=== PATIENT | female | born 1975 | race Hispanic/Latino ===

== ENCOUNTER 2018-08-09 06:15 | Day surgery (SDC) | payer BC ==
[2018-07-18 16:12] VITALS: BMI 23.5
[2018-08-09] MEDS ORDERED: Lactated Ringer's 1,000 ML IV ONE ×4 (07:06→10:50)
[2018-08-09] MEDS ORDERED: Chlorhexidine Gluconate 2OZ GEL TP ONE (07:25)
[2018-08-09] MEDS ORDERED: Silver Nitrate Topical - Stick ONE (07:25)
[2018-08-09] MEDS ORDERED: Bupivacaine 0.5% Inj(30mL) ONE (07:25)
[2018-08-09] MEDS ORDERED: Propofol 10 mg/ml Inj (20 ML) ONE (07:37)
[2018-08-09] MEDS ORDERED: Rocuronium 10 mg/ml (5 ml) ONE ×2 (07:37→09:59)
[2018-08-09] MEDS ORDERED: Lidocaine 4% (Laryng-O-Jet) Kit MM ONE (07:38)
[2018-08-09] MEDS ORDERED: Succinylcholine 200 mg/10 ml Inj IV ONE (08:25)
[2018-08-09] MEDS ORDERED: ePHEDrine 50 mg/ml Inj ONE (08:27)
[2018-08-09] MEDS ORDERED: Midazolam 2 MG/2 ML VIAL ONE (08:27)
[2018-08-09] MEDS ORDERED: Dexamethasone 4 mg/1 ml ONE (09:40)
[2018-08-09] MEDS ORDERED: Neostigmine 1:1000 (1 mg/ml) Inj ONE (11:08)
[2018-08-09] MEDS ORDERED: HYDROmorphone 0.5 mg/0.5 ml ISec IVP PRN (11:39)
[2018-08-09] MEDS ORDERED: Oxycodone/Acetaminophen 5/325 mg Tab PO PRN (11:39)
[2018-08-09] MEDS ORDERED: DiphenhydrAMINE 50 mg/ml Inj IVP PRN (11:40)
[2018-08-09] MEDS ORDERED: HYDROmorphone 0.5 mg/0.5 ml ISec ONE (11:44)
[2018-08-09] MEDS ORDERED: Lactated Ringer's 1,000 ML IV SCH ×2 (11:45)
[2018-08-09] MEDS: HYDROmorphone 0.5 mg/0.5 ml ISec IVP PRN ×4 (11:45→12:45)
[2018-08-09 12:28] VITALS: RESP 18
[2018-08-09] MEDS ORDERED: HYDROmorphone 0.5 mg/0.5 ml ISec IVP ONE ×2 (14:19→14:30)
[2018-08-09 15:54] VITALS: PULSE 61
[2018-08-09 18:11] VITALS: BP 104/54; TEMP 98; O2SAT 97
--- NOTE | 2018-08-10 07:22 | OP ---
PROCEDURE DATE: 08/09/2018 SURGEON: Yang Patrick MD LEGAL RECORDS CLERK: Abhi Hector MD ANESTHESIOLOGIST: Katya King MD TYPE OF ANESTHESIA: General endotracheal. PREOPERATIVE DIAGNOSES: 1. Incapacitating pelvic pain. 2. Incapacitating abdominal pain. 3. Abnormal uterine bleeding. 4. History of pelvic endometriosis. 5. History of previously failed medical and surgical therapy. 6. Gastrointestinal and genitourinary symptoms. 7. Rule out interstitial cystitis. 8. History of severe endometriosis and pelvic adhesions and prior hysterectomy POSTOPERATIVE DIAGNOSES: 1. Incapacitating pelvic pain. 2. Incapacitating abdominal pain. 3. Abnormal uterine bleeding. 4. History of pelvic endometriosis. 5. History of previously failed medical and surgical therapy. 6. History of severe endometriosis and pelvic adhesions. 7. Gastrointestinal and genitourinary symptoms. 8. pelvic endometriosis 9. Mild ureteral distention. PROCEDURES PERFORMED: 1. Exam under anesthesia. 2. .Cystoscopy 3. .Bilateral ureteral catheterization and 4. injection of IC-Green dye. 5. Robotic da Kanu operative laparoscopy. 6. Treatment of endometriosis. 7. Excision of endometriosis. 8. Bilateral ureterolysis. 9. left oophorectomy COMPLICATIONS: None. SAMPLES SENT: 1. Left Uterosacral l endometriosis. 2. Left periureteral endometriosis. 3. Right periureteral endometriosis. 4. Right uterosacral endometriosis. 5. Left and right ovarian fossa endometriosis. 6. Iliac endometriosis. 7. Posterior cervical endometriosis. 8. Rectal endometriosis, anterior. 9) Cul de sac endometriosis 10: left ovary 11: bladder endometriosis INDICATION FOR THE PROCEDURE AND CONSENT: The patient had a long history of pelvic pain, dysmenorrhea, dyspareunia, abdominal pain, and bladder pain.she had a hysterectomy but the pain has persisted . The patient had been thoroughly evaluated and counseled regarding the pros and cons of the procedure, the reasonable alternatives, and possible complications. She understood and accepted the risks involved. Literature was provided to the patient. The patient was understanding and given her history and per surgical exam, she was at high risk in an average patient. She accepted all the risks involved, and all the questions had been answered to her satisfaction. FINDINGS OF SURGERY: Genitalia: Normal external genitalia, . Cystoscopy: The cystoscopy was performed to rule out endometriosis and also any interstitial cystitis and also injury. The bladder was normal with no evidence of stone, trigonitis, or cystitis. A positive jet flow was identified in both ureters. Laparoscopy: The upper abdomen appeared to be normal. Gallbladder was normal. Liver edges appeared to be normal. Ascending colon and transverse were normal. the patient was post hysterectomy. the left ovary was encased in adhesions and had significant endometriosis. There was evidence of adhesions, fibrosis, and endometriosis of the rectovaginal and pelvic sidewalls. There was also evidence of mild hydroureters. DESCRIPTION OF THE PROCEDURE: Initiation of the case: After adequate anesthesia was obtained, the patient was placed in the dorsal lithotomy position, and with extreme care, placement of the patient with hyperextension and hyperflexing of the hips. At this point, the patient was prepped and draped. The surgeon was gowned and gloved. A timeout was taken according to the hospital procedure and the procedure was started. At this point, we performed cystoscopy, bilateral ureteral catheterization. A cystoscope was inserted into the bladder under direct visualization and the bladder was visualized. The bladder was free of lesions and tumors. There was no evidence of interstitial cystitis, and there was only mild amount of trigonitis. At this point, both ureters were identified and appeared to be in their normal anatomical position. At this point, utilizing an open 5-Czech open-ended catheter, the left ureter was catheterized all the way to the distal ureter, and 5 mL of IC-Green was injected into this ureter. Similarly, the contralateral ureter was catheterized all the way to the distal ureter, and 5 mL of IC-Green was injected into the distal ureter. At this point, the stents were removed, and the cystoscope was removed, and the 16-Czech Nazario was inserted into the bladder. At this point, we proceeded with placement of a trocar and docking of the da Kanu Xi robot. The surgeon was re-gowned and gloved, and open laparoscopy was performed by making incision in the umbilicus and the fascia was incised. The peritoneum was entered in a blunt fashion, and the cannula was inserted under direct visualization. The abdomen was insufflated, and under direct visualization, three additional ports were inserted in the left upper quadrant, left mid quadrant, and right upper quadrant. At this point, the da Kanu Xi robot was brought into the field and docked, and the instruments were inserted under direct visualization. All this with extreme care not to injure the bowel or another area. As per dictation, the upper abdomen appeared to be normal with no evidence of any lesions. At this point, we proceeded with a left ureterolysis. The ureter appeared to be dilated and was clearly identified utilizing IC-Green fluorescent technology. Anesthesia was made in the peritoneum at the top of the pelvic brim, and the incision was then carried down all the way opening the peritoneum all the way down from the pelvic brim, all the way down to the ovarian fossa, extending the incision below the ovary. It was a progressive dissection where the ureter was progressively lateralized and peritoneum was medialized, thus freeing the ureter all the way down to the cross of the uterine vessels. After this was done, the ureter was freed and lateralized, and a larger peritoneum which had been opened, was excised, and sent to pathology. At this point, with the aid of very slow process, I was able to elevate the ovary and proceed with ovariolysis. At this point, we proceeded with a left ovariolysis. The left ovary was adherent to the posterior aspect of the uterus. It was gently dissected in a step by step way. It was peeled off, the ovarian fossa, andan area of extensive fibrosis and endometriosis was exposed. At this point we performed a left oophorectomy the infuldibulo pelvic ligament was skeletonized and coagulated . it was transected and the ovary was placed in an endobag and removed. At this point, we proceeded with a right ureterolysis. The ureter was identified again utilizing fluorescent technology on the right hand side and retroperitoneal space was entered, and a full dissection was performed,entering the retroperitoneal space and dissecting the ureter, removing the ureter laterally and the peritoneum medially. A full dissection was performed all the way down to the ovarian fossa and the crossing of the uterine arteries. An area of peritoneum containing endometriosis was dissected and sent to Pathology. At this point, we proceeded with a right ovariolysis. The right ovary was adherent to the peritoneum. It was gently elevated progressively, and dissected off from the peritoneal area. All this done with extreme care to preserve vascularization to the ovary. At this point, we proceeded with treatment of endometriosis and excision of endometriosis. On the left hand side, fibrosis, especially in the left ovarian fossa was excised. In a very progressive step by step fashion, we dissected off fibrosis containing endometriosis and freed up the whole area. The ureters which had been lateralized. Areas of fibrosis and endometriosis were also identified in the posterior cul-de-sac and in the rectovaginal space which was also affected with endometriosis and fibrosis.Also significant lesions were present in the anterior bladder At this point, we proceeded with the excision of perirectal endometriosis. The rectovaginal area had significant fibrosis and additional endometriosis was dissected from the posterior aspect of the uterus, and the rectovaginal space was entered at the level of the peritoneal reflection. All this done making sure that no damage to the rectum was performed. At this point, endometriosis was also excised from the right uterosacral area which also was affected by fibrosis and endometriosis. At this point, it was checked for hemostasis and appeared to be excellent. Both fallopian tubes were in good condition and patent. At this point the console was handed over to Dr. Hector from General surgery who proceeded with rectal endometriosis procedure. He will dictate that separately. After he was done we checked for hemostasis and organ integrity and all was normal. At this point, the da Kanu Xi robot was removed. The abdomen was desufflated, and the incisions were closed in layers with 0 PDS for the fascia and 4-0 Monocryl for the skin. At the end of the procedure, all tips and instrument counts were correct. The patient tolerated the procedure well and was taken to the recovery room in excellent condition. Darnell GARCIA, Yang FROST
--- NOTE | 2018-08-17 07:40 | OP ---
OPERATIVE REPORT -Operative Report Date of Procedure: 08/09/2018 Surgeon: Abhi Hector MD Coding Tech: Yang Patrick MD Anesthesiologist: Fernando Aldana MD Anesthesia: General Endo Pre-op Diagnosis: abdominal pain Post-op Diagnosis: same Procedure/Operation Description: 1-Excision rectal endometriosis . Brief History: This 43year old woman was already brought to the operating room by Dr. Patrick and intraoperative surgical consultation was requested for intestinal involvement. Description of the Procedure: The patient was already brought to the operating room by Dr. Patrick (separate dictation). After taking control of the robotic console the rectal lesions were examined under videoscopy and with electrocautery multiple lesions were incised circumferentially with electrocautery and with blunt and sharp dissection was excise en-bloc and sent to pathology for analysis. The operation was then turned back to Dr. Patrick (separate dictation). Estimated Blood Loss:___ cc Complications: none Discharge & Condition: stable MTDD
== END 2018-08-09 19:39 | disposition home or self-care (01) ==
LOC: H.OPSURG 06:15
PROVIDERS: ATTEND Obstetrics & Gynecology Reproductive Endocrinology
DX: N80.0 Endometriosis of uterus (principal); M19.90 Unspecified osteoarthritis, unspecified site; J45.909 Unspecified asthma, uncomplicated; N73.6 Female pelvic peritoneal adhesions (postinfective); N80.1 Endometriosis of ovary; N80.3 Endometriosis of pelvic peritoneum; N80.5 Endometriosis of intestine; N83.201 Unspecified ovarian cyst, right side; N83.202 Unspecified ovarian cyst, left side; N93.9 Abnormal uterine and vaginal bleeding, unspecified; N94.6 Dysmenorrhea, unspecified; N80.8 Other endometriosis
CPT/HCPCS: 36415; 45171; 58563; 58661; 58662; 86850; 86900; 88305; C1729; J0330; J0690; J1100; J1170; J1885; J2001; J2250; J2405; J2704; J2710; J2765; J3010; J7030; J7120